=== PATIENT | female | born 1965 | race Caucasian/White ===

== ENCOUNTER 2016-08-07 09:21 | Emergency (ER) | payer OTHER ==
[2016-08-07 09:56] VITALS: BP 180/91
--- NOTE | 2016-08-07 10:12 | UC ---
Dental HPI - HPI Summary HPI Summary: several rotten teeth. Now with infection of left upper incisor which is broken off at gumline. Maxillary sinus on left feels full, she is getting some drainage into mouth, left cheeck swollen. Has Moustapha, can't find a dentist who takes her insurance. Trouble with teeth for many months. - History of Current Complaint Chief Complaint: UCDentalProblem Stated Complaint: DENTAL PAIN Time Seen by Provider: 08/07/16 09:52 Hx Obtained From: Patient Hx Last Menstrual Period: currently ?: No Onset/Duration: Gradual Onset, Lasting Weeks - 1 Severity: Moderate Aggravating: Heat, Cold, Chewing Alleviating: Nothing Related History: Discharge, Swelling - left cheek - Allergies/Home Medications Allergies/Adverse Reactions: Allergies Allergy/AdvReac Type Severity Reaction Status Date / Time Prednisone Allergy Severe BONE PAIN, Verified 05/21/14 16:02 JITTERS, NIGHTMARES Codeine Allergy Mild Vomiting Verified 05/21/14 16:02 IV contrast Allergy Palpitation Uncoded 05/21/14 17:06 s Home Medications: Home Medications ALPRAZolam TAB* [Xanax TAB*] 0.25 mg PO Q6H PRN 08/07/16 [History Confirmed ] Budesonide/Formote 80/4.5(NF) [Symbicort 80/4.5 (NF)] 1 puff INH BID 08/07/16 [ History Confirmed 08/07/16] Lisinopril [Zestril 10 MG-] 10 mg PO DAILY 08/07/16 [History Confirmed 08/07/16] PMH/Surg Hx/FS Hx/Imm Hx Endocrine History Of: Denies: Diabetes, Thyroid Disease Cardiovascular History Of: Reports: Hypertension Denies: Cardiac Disorders Respiratory History Of: Reports: COPD - emphazima, Asthma GI/ History Of: Denies: Ulcer - Surgical History Surgical History: Yes Surgery Procedure, Year, and Place: C SECTION, CHOLECYSTECTOMY - Family History Known Family History: Positive: Respiratory Disease - asthma - Social History Occupation: Employed Full-time Lives: With Family Alcohol Use: None Substance Use Type: None Smoking Status (MU): Heavy Every Day Tobacco Smoker Type: Cigarettes Amount Used/How Often: 1 ppd Length of Time of Smoking/Using Tobacco: 30+ YEARS Have You Smoked in the Last Year: Yes Review of Systems Constitutional: Negative Skin: Negative Eyes: Negative ENT: Dental Pain Respiratory: Negative Cardiovascular: Negative Gastrointestinal: Negative Genitourinary: Negative Motor: Negative Neurovascular: Negative Musculoskeletal: Negative Neurological: Negative Psychological: Negative All Other Systems Reviewed And Are Negative: Yes Physical Exam Triage Information Reviewed: Yes Appearance: Well-Appearing, No Pain Distress, Well-Nourished Vital Signs: Initial Vital Signs Temp 98.0 F 08/07/16 09:50 Pulse 88 08/07/16 09:50 Resp 18 08/07/16 09:50 BP 180/91 08/07/16 09:50 Pulse Ox 100 08/07/16 09:50 Vital Signs Reviewed: Yes Eye Exam: Normal ENT: Positive: Pharynx normal Dental: Positive: Gross Decay/Caries @ - many missing teeth. Left upper incisor rotted off at gumline, surrounding redness and swelling. Tenderness over maxillary area of cheek. Neck exam: Normal Neck: Positive: Supple Respiratory Exam: Normal Cardiovascular Exam: Normal Musculoskeletal Exam: Normal Neurological Exam: Normal Psychological Exam: Normal Skin Exam: Normal Dental Complaint Course/Dx - Differential Dx/Diagnosis Differential Diagnosis/Dx: Dental Abscess, Dental Caries, Fractured Tooth Provider Diagnoses: dental abscess Discharge - Discharge Plan Condition: Stable Disposition: HOME Prescriptions: Penicillin VK TAB 500 MG(NF) [Penicillin VK 500 mg Tab(NF)] 500 mg PO QID #40 tab Patient Education Materials: Dental Abscess (ED) Referrals: Maddy Trujillo MD [Primary Care Provider] -
== END 2016-08-07 10:11 | disposition home or self-care (01) ==
LOC: UCEAST 09:21
DX: K04.7 Periapical abscess without sinus (principal); I10 Essential (primary) hypertension; J44.9 Chronic obstructive pulmonary disease, unspecified; J45.909 Unspecified asthma, uncomplicated; F17.210 Nicotine dependence, cigarettes, uncomplicated; Z79.52 Long term (current) use of systemic steroids; Z91.041 Radiographic dye allergy status
CPT/HCPCS: 99212; G0463

== ENCOUNTER 2019-08-24 08:56 | Observation (INO) | payer OTHER ==
[2019-08-24 09:20] LABS: ABS Basophils 0.1 10^3/ul (0-0.2); ABS Eosinophils 0.1 10^3/ul (0-0.6); ABS Lymphocytes 2.5 10^3/ul (1.0-4.8); ABS Monocytes 0.7 10^3/ul (0-0.8); ABS Neutrophils 5.6 10^3/ul (1.5-7.7); Eosinophil % 1.1 %; Hematocrit 50 % (35-47); Lymphocyte % 27.7 %; Mean Corpuscular HGB Conc 34 g/dL (31-36); Mean Corpuscular Hemoglobin 30 pg (27-31); Mean Corpuscular Volume 88 fL (80-97); Mean Platelet Volume 8.2 fL (7.4-10.4); Nucleated Red Blood Cells % 0.1; Platelet Count 244 10^3/uL (150-450); Red Blood Count 5.64 10^6 /uL (3.70-4.87); Red Cell Distribution Width 14 % (10-15); White Blood Count 8.9 10^3/uL (3.5-10.8)
--- NOTE | 2019-08-24 09:20 | ED ---
Complex/Multi-Sys Presentation - HPI Summary HPI Summary: 54 year old F presenting to [facility] with a chief complaint of intermittent chest pressure that has since resolved, bilateral shoulder pain, and bilateral arm pain since last night. The patient rates the pain 0/10 in severity. Symptoms aggravated by nothing. Symptoms alleviated by nothing. The patient states that she had GERD last night and her pain had resolved, then returned this morning. Patient denies shortness of breath, leg swelling, or dizziness. Patient reports a history of anxiety, hypertension, a Cesarian section, a tubal ligation, and GERD. The patient states that she has not had a stress test. She reports a family history of hypertension but denies any family history of an MA at an early age. She admits to an active history of smoking. She denies any alcohol use or recreational drug use. Medication list reviewed. Allergy list reviewed. Home Medications Medication Instructions Recorded Confirmed Type Albuterol inh POWDER (NF) [Proair 1 puff INH DAILY 09/23/17 08/24/19 History Respiclick] - History Of Current Complaint Chief Complaint: EDChestPainROMI Time Seen by Provider: 08/24/19 09:09 Hx Obtained From: Patient Onset/Duration: Lasting Hours Timing: Intermittent, Lasting: Severity Currently: None Character: Pressure Aggravating Factor(s): None Alleviating Factor(s): None Associated Signs And Symptoms: Positive: Other - Bilateral arm pain; bilateral shoulder pain. Negative: Dizziness, SOB - Allergies/Home Medications Allergies/Adverse Reactions: Allergies Allergy/AdvReac Type Severity Reaction Status Date / Time prednisone AdvReac Severe bone pain, Verified 08/24/19 10:07 jitters codeine AdvReac Mild Vomiting Verified 09/23/17 11:40 IV contrast Allergy Palpitation Uncoded 05/21/14 17:06 s Home Medications: Home Medications Albuterol inh POWDER (NF) [Proair Respiclick] 1 puff INH DAILY 09/23/17 [ History Confirmed 08/24/19] PMH/Surg Hx/FS Hx/Imm Hx Endocrine/Hematology History: Denies: Hx Diabetes, Hx Thyroid Disease Cardiovascular History: Reports: Hx Hypertension Respiratory History: Reports: Hx Asthma, Hx Chronic Obstructive Pulmonary Disease (COPD) - emphazima GI History: Reports: Hx Gastroesophageal Reflux Disease Denies: Hx Ulcer Psychiatric History: Reports: Hx Anxiety - Surgical History Surgery Procedure, Year, and Place: C SECTION, CHOLECYSTECTOMY; tubal ligation Infectious Disease History: No Infectious Disease History: Denies: Hx Hepatitis, Hx Human Immunodeficiency Virus (HIV), Traveled Outside the [place] in Last 30 Days - Family History Known Family History: Positive: Hypertension, Respiratory Disease - asthma - Social History Alcohol Use: None Substance Use Type: Reports: None Smoking Status (MU): Heavy Every Day Tobacco Smoker Type: Cigarettes Amount Used/How Often: 1 ppd Length of Time of Smoking/Using Tobacco: 30+ YEARS Have You Smoked in the Last Year: Yes Review of Systems Positive: Chest Pain Negative: Shortness Of Breath Musculoskeletal: Negative - Leg swelling Positive: Other - Bilateral arm pain; bilateral shoulder pain Neurological/Mental Status: Negative - Dizziness All Other Systems Reviewed And Are Negative: Yes Physical Exam - Summary Physical Exam Summary: VITAL SIGNS: Reviewed. GENERAL: Patient is a well-developed and nourished female who is lying comfortable in the stretcher. Patient is not in any acute respiratory distress. HEAD AND FACE: No signs of trauma. No ecchymosis, hematomas or skull depressions. No sinus tenderness. EYES: PERRLA, EOMI x 2, No injected conjunctiva, no nystagmus. EARS: Hearing grossly intact. Ear canals and tympanic membranes are within normal limits. MOUTH: Oropharynx within normal limits. NECK: Supple, trachea is midline, no adenopathy, no JVD, no carotid bruit, no c- spine tenderness, neck with full ROM. CHEST: Symmetric, no tenderness at palpation. LUNGS: Clear to auscultation bilaterally. No wheezing or crackles. CVS: Regular rate and rhythm, S1 and S2 present, no murmurs or gallops appreciated. ABDOMEN: Soft, non-tender. No signs of distention. No rebound, no guarding, and no masses palpated. Bowel sounds are normal. EXTREMITIES: FROM in all major joints, no edema, no cyanosis or clubbing. NEURO: Alert and oriented x 3. No acute neurological deficits. Speech is normal and follows commands. SKIN: Dry and warm. Triage Information Reviewed: Yes Vital Signs On Initial Exam: Initial Vitals Temp Pulse Resp BP Pulse Ox 97.5 F 93 18 203/103 98 08/24/19 09:02 08/24/19 09:02 08/24/19 09:02 08/24/19 09:02 08/24/19 09:02 Vital Signs Reviewed: Yes Procedures - Sedation Patient Received Moderate/Deep Sedation with Procedure: No Diagnostics - Vital Signs Vital Signs Temp Pulse Resp BP Pulse Ox 08/24/19 09:02 97.5 F 93 18 203/103 98 - Laboratory Result Diagrams: 08/25/19 05:36 08/25/19 05:36 Lab Statement: Any lab studies that have been ordered have been reviewed, and results considered in the medical decision making process. - Radiology Chest x-ray Radiology Interpretation Completed By: Radiologist Summary of Radiographic Findings: NO ACTIVE CARDIOPULMONARY DISEASE. ED physician has reviewed this report. - EKG 09:02 Cardiac Rate: NL - 84 BPM EKG Rhythm: Sinus Rhythm Summary of EKG Findings: Without any accelerations; inverted T-wave in AVL; normal axis. ED physician has reviewed and interpreted this EKG. Re-Evaluation - Re-Evaluation First Eval Re-Evaluation Time: 11:28 Comment: Re-evaluated the patient who appears to need admission. Complex Multi-Symp Course/Dx Assessment/Plan: 54 year old F presenting to [facility] with a chief complaint of intermittent chest pressure that has since resolved, bilateral shoulder pain, and bilateral arm pain since last night. The patient rates the pain 0/10 in severity. Symptoms aggravated by nothing. Symptoms alleviated by nothing. The patient states that she had GERD last night and her pain had resolved, then returned this morning. Patient denies shortness of breath, leg swelling, or dizziness. Patient reports a history of anxiety, hypertension, a section, a tubal ligation, and GERD. The patient states that she has not had a stress test. She reports a family history of hypertension but denies any family history of an MA at an early age. She admits to an active history of smoking. She denies any alcohol use or recreational drug use. Medication list reviewed. Allergy list reviewed. In the ED course the patient was placed on a brancher, IV access was obtained. She was given ASA and Nitroglycerin for CP. She reports she has not taken her Lisinopril today thus she was given Lisinopril 10mg PO. Blood pressure continues to be elevated thus, she was given Labetalol 20 mg IV. Past medical records reviewed. Blood test w/o a significant abnormality except for glucose of 116, troponin 0.04. EKG shows a normal sinus rhythm without any ST elevation. Heart score is 4. I discussed my physical exam and test results with Dr. Miles from the hospitalist services and she agrees to admit the patient to her services. The patient is hemodynamically stable, alert and oriented x 3. - Diagnoses Provider Diagnoses: Hypertensive urgency, Elevated troponin, Angina pectoris - Physician Notifications Discussed Care Of Patient With: Deandra Miles Time Discussed With Above Provider: 11:38 Instructed by Provider To: Other - Discussed the patient with Dr. Miles who will admit the patient. - Critical Care Time Critical Care Time: 30-74 min Discharge ED - Sign-Out/Discharge Documenting (check all that apply): Patient Departure - Discharge Plan Condition: Stable Disposition: ADMITTED TO [facility] - Billing Disposition and Condition Condition: STABLE Disposition: Admitted to [facility] - Attestation Statements Document Initiated by Carmenibe: Yes Documenting Scribe: Kristina Cain Provider For Whom Carmenibe is Documenting (Include Credential): Edwar Caraballo MD Scribe Attestation: I, gabby Adamsed for Ewdar Caraballo MD on 08/25/19 at 1134. Scribe Documentation Reviewed: Yes Provider Attestation: The documentation as recorded by the Kristina morales accurately reflects the service I personally performed and the decisions made by me, Edwar Caraballo MD Status of Scribe Document: Viewed
[2019-08-24 09:41] LABS: Activated Partial Thrombo Time 35.6 seconds (26.0-38.0); INR 0.96 (0.82-1.09)
[2019-08-24 09:42] LABS: Albumin 4.3 g/dL (3.2-5.2); Albumin/Globulin Ratio 1.3 (1-3); Calcium 9.5 mg/dL (8.6-10.3); EGFR African American 90.1 (>60); EGFR Non-African American 74.5 (>60); Globulin 3.4 g/dL (2-4); Potassium 3.7 mmol/L (3.5-5.0); Total Bilirubin 0.8 mg/dL (0.2-1.0); Total Protein 7.7 g/dL (6.4-8.9)
[2019-08-24 09:44] LABS: CKMB ng/mL 1.9 ng/mL (0.6-6.3)
[2019-08-24 09:45] LABS: Troponin I 0.04 ng/mL (<0.03)
[2019-08-24 10:01] LABS: TSH (Thyroid Stimulating Horm) 2.4 mcIU/mL (0.34-5.60)
--- OUTSIDE RECORDS SUMMARY | 2019-08-24 10:02 | XMS REPORT ---
:1965 Author Organization [facility] Care Team Providers Name Role Phone Erin Obregon Primary Care Physician Unavailable Allergies, Adverse Reactions, Alerts Allergy Code CodeSystem Reaction Severity Criticality Status Start Substance Date Moderate Medications Medication Medication Medication Start Stop Route Dose Status Fill Code CodeSystem Date Date Instructions trazodone 752242 RxNorm 2018-11 oral 50 mg 1 active Take 1 tablet -18 tablet at bedtime at for 30 day(s) bedtime sertraline 645072 RxNorm 2018-11 2019- oral 25 mg 1 completed Take 1 tablet -18 - tablet once a day once a for 30 day(s) day sertraline 303750 RxNorm 2019-01 oral 25 mg 1 active Take 1 /2 -01 1/2 tablet once tablet a day for 30 once a day(s) day Problems Problem Name Code CodeSystem Alternate Alternate Start End Status Narrative Code CodeSystem Date Date 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, unspecified Generalized 59620394 SNOMED-CT 20190 Active anxiety 4-03 disorder Generalized 12416405 SNOMED-CT 20190 Active anxiety 4-03 disorder 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, 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 Recurrent [id number] SNOMED-CT 2019-0 Active depressive 6-18 disorder, 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 Post-traumat 81203948 SNOMED-CT 0 Active ic stress 3-22 disorder, unspecified Relevant diagnostic tests/laboratory data Narrative No Information Procedures Procedure Code CodeSystem Target Date of Status Service Device Device Device Name Site Procedure Delivery Code Name UID Location Psychotherap [id number] SNOMED-CT () 2019-05-04 complete Mental y, 45 04 d Health- minutes with [address], [id number] Psychotherap [id number] SNOMED-CT () 2019-06-01 complete Mental y, 45 04 d Health- minutes with [place] patient [address], [id number] [id number] Psychotherap [id number] SNOMED-CT () 2019-01-19 complete Mental y, 45 04 d Health- minutes with [place] patient [address], [id number] [id number] Psychotherap [id number] SNOMED-CT () 2018-12-01 complete Mental y, 45 04 d Health- minutes with [place] patient [address], [id number] [phone] Office or [id number] SNOMED-CT () 2019-01-15 complete Mental other 7 d Health- outpatient [place] visit for [address], established [id number] patient, [id number] which requires at least 2 of these 3 camarena components: An expanded problem focused history; An expanded problem focused examination; Medical decision making of [facility] Office or [id number] SNOMED-CT () 2019-06-01 complete Mental other 6 d Health- outpatient [place] visit for [address], established [id number] patient, [id number] which requires at least 2 of these 3 camarena components: A problem focused history; A problem focused examination; Straightforw sally medical decision making. Counselin Office or [id number] SNOMED-CT () 2018-12-02 complete Mental other 8 d Health- outpatient [place] visit for [address], established [id number] patient, [id number] which requires at least 2 of these 3 camarena components: A detailed history; A detailed examination; Medical decision making of moderate complexity. Counseling and/o SNOMED-CT () 2018-12-14 complete Mental d Health- [place], [id number] [phone] SNOMED-CT () 2018-12-14 complete Mental d Health- [place], [id number] [phone] SNOMED-CT () 2019-02-14 complete Mental d [address], [id number] SNOMED-CT () 2019-02-14 complete Mental d [address], [id number] [id number] SNOMED-CT () 2019-01-06 complete Mental d [address], [id number] [phone] Encounters/Encounter Diagnoses Encounter Encounter Diagnosis Diagnosis Diagnosis Date of Service Name Code Code Name CodeSystem Diagnosis Delivery Location Non-Billable [id number] [id number] Recurrent SNOMED-CT 2019-02-12 Behavioral depressive Health disorder, Clinic , , current , episode severe without psychotic symptoms Vital Signs No Information Social History Element Description Description Start End Code CodeSystem AdditionalInfo Date Date SexAssignedAtBirth Female 1964-06 F AdministrativeGender 08 Hospital Discharge Instructions Reason For Referral Medical Equipment FDA Assessments
[2019-08-24] MEDS ORDERED: Lisinopril TAB* 10 MG PO ONE (10:16)
[2019-08-24] MEDS ORDERED: Labetalol IV* 5 MG/ML 20 ML VIAL IV PUSH ONE (11:22)
[2019-08-24] MEDS ORDERED: Aspirin 81 mg CHEW TAB* 81 MG TAB.CHEW PO ONE (11:23)
[2019-08-24] MEDS ORDERED: Nitroglycerin TAB 0.4 MG* 0.4 MG TAB SL ONE (11:23)
[2019-08-24 12:29] LABS: Troponin I 0.07 ng/mL (<0.03)
[2019-08-24] MEDS ORDERED: Albuterol/Ipratropium NEB.SOL* Albuterol 2.5 MG/Ipratropium 0.5 MG 3 ML INH PRN (13:08)
[2019-08-24] MEDS ORDERED: Acetaminophen TAB* 325 MG PO PRN (13:08)
[2019-08-24 13:31] LABS: Urine Appearance Clear; Urine Bilirubin Negative (Negative); Urine Blood Negative (Negative); Urine Color Yellow; Urine Glucose Negative (Negative); Urine Ketones Negative (Negative); Urine Nitrite Negative (Negative); Urine Protein Negative (Negative); Urine Specific Gravity 1.008 (1.010-1.030); Urine Urobilinogen Negative (Negative)
[2019-08-24] MEDS ORDERED: amLODIPine TAB* 5 MG PO SCH (15:00)
[2019-08-24] MEDS: Enoxaparin(*) 40 MG/0.4 ML SYR SUBCUT SCH (15:39)
[2019-08-24 16:22] LABS: Troponin I 0.07 ng/mL (<0.03)
--- NOTE | 2019-08-24 16:31 | ECHO ---
*[facility]* [place] [address] Fax #: [phone] Transthoracic Echocardiogram Patient: Sydnie Escalante : 1965 Study Date: 08/24/2019 Age: 54 Gender: F HR: 64 bpm Height: 65 in /165.1 cm BSA: 2.02 m^2 Weight: 209.6 lb /95.3 kg BMI: 34.9 kg/m^2 *Real Estate Transaction Manager: * Sara Woodall [facility] *Referring Physician: * Shamika Londono *Reading Physician: * Isauro Harrison MD Indications: Chest Pain, unspecified. History: Chronic obstructive pulmonary disease. Risk factors: Current tobacco use. Hypertension. Conclusions Summary: - Left ventricle: Systolic function is normal. The estimated ejection fraction is 60-65%. Wall motion is normal; there are no regional wall motion abnormalities. - Right ventricle: Systolic function is normal. - Mitral valve: There is trace regurgitation. - Aortic valve: There is no evidence of stenosis. There is no significant regurgitation. - Pulmonary arteries: Systolic pressure can not be accurately estimated. - Study data: No prior study is available for comparison. Study data: Transthoracic echocardiogram. Procedure: Transthoracic echocardiography was performed. Image quality was fair. Complete 2D, spectral Doppler, and color flow Doppler. Location: Bedside. Patient status: Inpatient. Patient room number: 432. No prior study is available for comparison. Rhythm: Normal sinus rhythm. Findings Left ventricle: The cavity size is normal. Wall thickness is mildly increased. Systolic function is normal. The estimated ejection fraction is 60-65%. Wall motion is normal; there are no regional wall motion abnormalities. Doppler parameters are consistent with abnormal left ventricular relaxation (grade 1 diastolic dysfunction). Right ventricle: The cavity size is normal. Wall thickness is mildly increased. Systolic function is normal. Left atrium: The atrium is mildly dilated. Right atrium: The atrium is normal in size. Mitral valve: The leaflets are mildly thickened. There is no evidence of stenosis. There is trace regurgitation. Aortic valve: The valve is trileaflet. Mild focal thickening involving the left coronary cusp. There is no evidence of stenosis. There is no significant regurgitation. Tricuspid valve: The leaflets are normal thickness. There is no evidence of stenosis. There is trace regurgitation. Pulmonic valve: The leaflets are normal thickness. There is no evidence of stenosis. There is trace regurgitation. Aorta: Aortic root: The aortic root is appears normal. Ascending aorta: The ascending aorta is appears normal. Aortic arch: The aortic arch is appears normal. Pericardium: There is no significant pericardial effusion. Pulmonary arteries: The main pulmonary artery is normal-sized. Systolic pressure can not be accurately estimated. Systemic veins: Inferior vena cava: The vessel is dilated. There is (>= 50%) respiratory change in the IVC dimension. Measurements Left ventricle Value Ref Right atrium Value Ref REBECA, LAX 4.4 cm 3.8 - 5.2 SI dim, ES 5.1 cm 3.4 - 5.3 ESD, LAX 3.2 cm 2.2 - 3.5 ML dim, ES, A4C 3.8 cm 2.6 - 4.4 FS, LAX 27 % 45 Estimated RAP 8 mm Hg --------- PW, ED, LAX (H) 1.1 cm 0.6 - 0.9 FS % Aortic valve Value Ref Mid-wall FS 11 % Skylar diam, ED 2.3 cm --------- PW, ED (H) 1.1 cm 0.6 - 0.9 Peak v, S 1.75 m/sec --------- E', lat skylar, TDI (L) 9.4 cm/sec >=10.0 VTI, S 35.9 cm --- ------ E/e', lat skylar, 7 Mean grad, S 6.0 mm Hg ------ --- TDI Peak grad, S 12.0 mm Hg --------- E', med skylar, TDI 7.8 cm/sec >=7.0 LVOT/AV, VTI ratio 0.64 --- ------ E/e', med skylar, 8 ABBEY, VTI 2.01 cm^2 ------ --- TDI ABBEY, Vmax 1.96 cm^2 --------- E', avg, TDI 8.6 cm/sec E/e', avg, TDI 8 <=14 Mitral valve Value Ref Peak E 0.65 m/sec --------- LVOT Value Ref Peak A 0.81 m/sec --------- Diam, S 2.00 cm Decel time 239 ms --------- Area 3.1 cm^2 Peak E/A ratio 0.8 --------- Peak alexa, S 1.09 m/sec VTI, S 23.0 cm Pulmonic valve Value Ref Mean grad, S 3 mm Hg Peak v, S 1.08 m/sec --------- SV 73 ml Peak grad, S 5.0 mm Hg --------- SV/bsa 36 ml/m^2 Aortic root Value Ref Ventricular septum Value Ref Root diam 2.9 cm <4.2 IVS, ED (H) 1.2 cm 0.6 - 0.9 Ascending aorta Value Ref Right ventricle Value Ref AAo AP diam, S 3.0 cm --------- AW thickness, ED (H) 0.7 cm 0.1 - 0.5 REBECA, LAX 2.9 cm Aortic arch Value Ref REBECA minor ax, A4C 3.1 cm 1.9 - 3.5 Arch diam 2.2 cm --------- mid Decending aorta Value Ref Left atrium Value Ref Shan peak alexa 0.84 m/sec --------- AP dim, ES 3.80 cm 2.70 - 3.80 Inferior vena cava Value Ref ML dim, A4C 3.6 cm Diam 2.2 cm --------- SI dim, A4C 5.5 cm Vol/bsa, ES, 1-p 22 ml/m^2 11 - 40 A4C Vol/bsa, ES, A/L 25 ml/m^2 16 - 34 Legend: (L) and (H) jeremias values outside specified reference range. Prepared and electronically signed by Isauro Harrison MD 08/24/2019 16:30
--- NOTE | 2019-08-24 16:45 | HP ---
ADMISSION HISTORY AND PHYSICAL: DATE OF ADMISSION: 08/24/19 PRIMARY CARE PHYSICIAN: The patient has no PCP. ADMITTING PHYSICIAN: Dr. Miles * (dictated by Geovanna Lei NP). CHIEF COMPLAINT: Right chest pain. HISTORY OF PRESENT ILLNESS: Ms. Escalante is a 54-year-old female with past medical history significant for COPD, emphysema, asthma, depression, anxiety, panic disorder, hypertension, GERD, and MARIO. She presented to the emergency department today after having 2 episodes of chest pain. She is also a current smoker. Ms. 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 States that it felt like a muscular type pain and felt like the pain to her right chest was somewhat superficial, but also states that it felt like it was "in my lungs." States that this pain was constant and lasted for only a couple minutes. States that it was fairly severe , but does not give it a number rating. She went home and gave herself a nebulizer treatment because she thought it may have had something to do with her underlying pulmonary disease. She also is wondering if it was in relation to GERD, although it did not feel like her usual heartburn. She did not have any more episodes of chest pain last night. She did, however, have another episode shortly after letting her dog out this morning. States that it was less severe; however, she let the dog out, sat down to have a cigarette and a cup of coffee, and then started feeling the chest pain. She states that this time it actually started in her arms and shoulders and then moved to the right side of her chest. Again, it lasted for a couple minutes and then went away. States it felt somewhat tight, but did not feel like anything was "sitting on my chest." She denies any shortness of breath with either of these episodes of chest pain. She has not seen a primary care doctor in at least the last couple years she says and subsequently has not been taking medications for her various chronic comorbidities. She states that she has some leftover albuterol medications, which she takes every once in a while when she feels like she needs them, but that is it. She does state that she follows with [facility]. The last time she saw them was about a month ago and she said she usually goes every 2 weeks in relation to her depression, anxiety, panic disorder, and PTSD. States that again at least a couple years ago she was taking Zoloft and trazodone; however, she has not been taking these. She does have a history of anemia, which sounds as if it was in relation to heavy menses. States that her last period was a couple years ago and is assuming that she has gone through menopause, but has not confirmed this with a provider. States she is under a lot more stress than usual, is having lots of stress with her living situation as well as her financial situation. She complains of a gradual decrease in her visual acuity, but nothing acute. Denies any shortness of breath or current chest pain. States she has just been feeling very stress and tired recently. She did start taking some vitamins, 2 [employer] starting in February and said that that actually helped her , but she stopped when she ran out and has not gotten any since. She does feel bloated, says she was very gassy last night. Denies any nausea or vomiting. Did have 1 episode of diarrhea this morning, states that it was normal in color. Has never had a colonoscopy. Has not been drinking much fluid and that her urine is somewhat dark. Denies any swelling. She does have a history of right arm cellulitis and believes that she is getting over an episode of that, which started a couple weeks ago. The patient denies any history of bleeding or clotting disorders other than known heavy menses. Denies any recent procedures or hospitalizations or any recent antibiotic use. While in the emergency department, the patient did receive 324 mg of aspirin. She came in with a blood pressure of 203/103, which remained rather high. She also received labetalol 20 mg IV and lisinopril 10 mg p.o. She did not receive any nitroglycerin as she has not had chest pain since arrival. Hospital Medicine was asked to evaluate the patient for admission. PAST MEDICAL HISTORY: COPD, emphysema, asthma, depression, anxiety, hypertension, GERD, cellulitis of the right arm, PTSD, panic disorder, anemia, excessive menstruation, MARIO, and lumbar radiculopathy. PAST SURGICAL HISTORY: 1. Laparoscopic cholecystectomy. 2. Tubal ligation. 3. x1. HOME MEDICATIONS: 1. Albuterol inhaler. 2. Albuterol nebulizer. These are not currently prescribed. They are leftover medications and she takes them as needed. ALLERGIES: ALLERGIES: 1. PREDNISONE. 2. CODEINE. FAMILY HISTORY: Twin brother with hypertension. Mother with colon cancer. Brother with lung cancer. Brother with brain cancer. Maternal grandmother with stroke. Sister with possible CO. Denies any other known history of CO or cardiac disease. SOCIAL HISTORY: The patient states that a surrogate decision maker for her would be her sister, Joy Luna. She is single. Lives with a roommate. She is a current smoker. She currently smokes up to 2 packs per day. States that she has been smoking since age 11 or 12 and that the amount has varied. Denies any alcohol or illicit drug use. REVIEW OF SYSTEMS: A 12-point review of systems was completed with this patient. Please see HPI for all pertinent positives and negatives. PHYSICAL EXAMINATION CONSTITUTIONAL: The patient is sitting up in bed, in no acute distress. VITAL SIGNS: Temp 97.5, heart rate 79, respiratory rate 15, O2 saturation 97% on room air, blood pressure 162/98. RESPIRATORY: Lung sounds clear throughout. Good airflow. Normal respiratory effort. CARDIOVASCULAR: Heart rate regular. S1, S2 present. No murmurs, rubs, or gallops noted. No JVD. GI: Bowel sounds throughout. Abdomen is large, soft, nontender. EXTREMITIES: No edema. Pedal pulses 2+ bilaterally. MUSCULOSKELETAL: Strength and range of motion 5/5 to all extremities. NEURO: Alert and oriented x3. Cranial nerves II through XII grossly intact. PSYCH: Responds appropriately. Normal affect. SKIN: Appears dry and intact. DIAGNOSTIC STUDIES/LAB DATA: Troponin 0.04 at 9:05 and 0.07 at 11:57. EKG at 9:02 shows sinus rhythm with inverted Ts in aVL and minor ST depression in leads I to V4, V5 and V6 with peaked T-waves. EKG at 1335 shows sinus rhythm with T-wave inversion in aVL with mild ST depression in leads I, V3, V4, V5 with peaked T-waves. Chest x-ray, impression: States no active cardiopulmonary disease. Labs: WBC 8.9, RBC 5.67, hemoglobin 17.0, hematocrit 50, MCV 88, MCH 30, MCHC 34, RDW 14, platelet count 244. INR 0.96, APTT 35.6. Sodium 138, potassium 3.7 , chloride 105, carbon dioxide 25, anion gap 8, BUN 12, creatinine 0.8, estimated GFR 74.4, BUN/creatinine ratio 15.0, glucose 116, calcium 9.5. Total bilirubin 0.80, AST 17, ALT 15, alk phosphatase 99. CK-MB 1.9, BNP 29. Total protein 7.7, albumin 4.3, globulin 3.4, albumin/globulin ratio 1.3. TSH 2.40. ASSESSMENT AND PLAN: Ms. Escalante is a 54-year-old female with past medical history significant for chronic obstructive pulmonary disease, emphysema, asthma , depression, anxiety, posttraumatic stress disorder, panic disorder, hypertension, anemia, gastroesophageal reflux disease, and obstructive sleep apnea, who presented to the emergency department today after having 2 episodes of chest pain since last night. 1. Chest pain. Somewhat atypical in nature. Has denied any episodes chest pain since being in the hospital. She also has denied any shortness of breath with this chest pain. Unsure if these were brought on by exertion, but it does sound somewhat likely from her story. She has a HEART score of 6, giving her a moderate score and risk of major adverse cardiac event of 12% to 16.6%. She did have elevated troponins of 0.04 and second troponin 0.07, third troponin 0.07. EKGs show no clinically significant concern for ischemia at this time. EKG has been reviewed by Dr. Harrison, who also suggested stress testing in the morning and continuing to trend troponins. Causes of chest pain could be in relation to musculoskeletal pain versus gastroesophageal reflux disease versus pulmonary pathology versus acute coronary syndrome. The concern for acute coronary syndrome at this time is low; however, we will continue to trend troponin levels. Transthoracic echocardiogram ordered. Nuclear stress ordered. Trend troponins and EKGs with increasing levels. Telemetry monitoring. After a.m. lipid profile an accurate ACSVD risk can be calculated. 2. Hypertension. BPs, initial BP of 203/103, have remained high. She did receive labetalol 20 IV and lisinopril 10 p.o. while in the emergency department. She has not been on medications for the last couple of years per her report to treat her high blood pressure. Continue lisinopril 10 mg p.o. daily. Initiate amlodipine 5 mg p.o. daily tonight. Continue to monitor. 3. Chronic obstructive pulmonary disease and emphysema. Does not appear to be in exacerbation at this time. Again, she has not been taking medications to treat this condition other than rescue albuterol medications. She does complain of feeling short of breath at times after exertion, but not always and states that she has been wheezing more often lately. We will initiate DuoNeb q.4 hours while awake. Will continue to monitor. Should f/u as an outpatient, would be beneficial to see gericare aide if she is agreeable. 4. Asthma. Does not appear to be in exacerbation at this time. See above. 5. Gastroesophageal reflux disease. Does not appear to be having any typical heartburn symptoms at this time. We will continue to monitor. 6. Depression and anxiety. She follows up outpatient with [facility]. She does appear to be mildly anxious at this time; however, we will continue to monitor her response to her current condition and she should follow up outpatient about these conditions with a PCP and continue to see providers at [facility]. 7. Obstructive sleep apnea. Per old records, the patient has been diagnosed with obstructive sleep apnea. She has never worn a CPAP per her report. We will continue to monitor her throughout the night. Would be beneficial to f/u with gericare aide or be referred for sleep study as outpt. 8. Polycythemia. RBC is 5.64, H and H 17 and 50. This may be in relation to hypoxia related to her multiple lung diseases, may be in relation to untreated sleep apnea. She also has been anemic in the past and likely has gone through menopause per her lack of menses for the last couple years and age, although this has not been confirmed medically. It would not explain the polycythemia but it could explain the transition from anemia to polycythemia over the last couple of years. We will draw labs in the a.m. 9. Elevated troponins. This may be in relation to demand ischemia r/t respiratory disease vs uncontrolled HTN vs an acute coronary syndrome. Continue to trend troponins. 10. Code status: Full code. 11. DVT prophylaxis: Lovenox subcu. TIME SPENT: Approximately 75 minutes was spent on this admission with almost half of that being [id number] with the patient for interview, exam, and reviewing plan of care. This case has been reviewed by my attending physician, Dr. Miles, and she agrees with this plan. GEOVANNA LEI NP [id number]/CPS #: [id number] EVON
[2019-08-24 19:11] LABS: Troponin I 0.05 ng/mL (<0.03)
[2019-08-24] MEDS ORDERED: Simethicone TAB* 80 MG TAB.CHEW PO PRN (22:10)
[2019-08-25] MEDS ORDERED: hydrALAZINE IV* 20 MG/ML VIAL IV SLOW PU ONE (05:30)
[2019-08-25 06:20] LABS: Hematocrit 46 % (35-47); Hemoglobin 15.8 g/dL (12.0-16.0); Mean Corpuscular HGB Conc 34 g/dL (31-36); Mean Corpuscular Hemoglobin 30 pg (27-31); Mean Corpuscular Volume 88 fL (80-97); Mean Platelet Volume 8.3 fL (7.4-10.4); Platelet Count 248 10^3/uL (150-450); Red Blood Count 5.28 10^6 /uL (3.70-4.87); Red Cell Distribution Width 14 % (10-15)
[2019-08-25 06:43] LABS: BUN/Creatinine Ratio 18.7 (8-20); Calcium 9.4 mg/dL (8.6-10.3); EGFR African American 97.1 (>60); EGFR Non-African American 80.2 (>60); HDL Cholesterol 33.4 mg/dL; Magnesium 2.1 mg/dL (1.9-2.7)
[2019-08-25] MEDS ORDERED: Influenza VAC *QUAD* 2019-20* 0.5 ML SYRINGE IM ONE (09:00)
[2019-08-25] MEDS ORDERED: Lisinopril TAB* 5 MG PO SCH (09:00)
[2019-08-25] MEDS ORDERED: Aspirin 81 mg CHEW TAB* 81 MG TAB.CHEW PO SCH (09:00)
[2019-08-25 10:49] VITALS: BP 152/88
--- NOTE | 2019-08-25 11:57 | PN ---
Subjective Date of Service: 08/25/19 Objective Active Medications: Acetaminophen (Tylenol Tab*) 650 mg PO Q4H PRN PRN Reason: PAIN - MILD Albuterol/Ipratropium (Duoneb (Albuterol 2.5 Mg/Ipratropium 0.5 Mg)) 1 neb INH [id number] AWAKE PRN PRN Reason: sob/wheexing Amlodipine Besylate (Norvasc Tab*) 5 mg PO BEDTIME [facility] Last Admin: 08/24/19 15:39 Dose: 5 mg Aspirin (Aspirin 81 Mg Chew Tab*) 81 mg PO DAILY [facility] Last Admin: 08/25/19 08:45 Dose: 81 mg Enoxaparin Sodium (Lovenox(*)) 40 mg SUBCUT Q24H [facility] Last Admin: 08/24/19 15:39 Dose: 40 mg Lisinopril (Prinivil Tab*) 10 mg PO DAILY [facility] Last Admin: 08/25/19 08:45 Dose: 10 mg Simethicone (Mylicon Tab*) 80 mg PO Q6H PRN PRN Reason: DYSPEPSIA Last Admin: 08/24/19 22:23 Dose: 80 mg Vital Signs - 8 hr 08/25/19 08/25/19 08/25/19 04:56 05:47 07:30 Temperature 97.5 F Pulse Rate 66 72 Respiratory 16 Rate Blood Pressure 190/100 131/74 152/88 (mmHg) O2 Sat by Pulse 98 Oximetry 08/25/19 08:00 Temperature Pulse Rate Respiratory 20 Rate Blood Pressure (mmHg) O2 Sat by Pulse Oximetry Oxygen Devices in Use Now: None Result Diagrams: 08/25/19 05:36 08/25/19 05:36 Assess/Plan/Problems-Billing Assessment: - Patient Problems (1) Chest pain Status: Acute Code(s): R07.9 - CHEST PAIN, UNSPECIFIED SNOMED Code(s): 60851835 Comment: High Risk nuclear cardiac exercise stress test per original report - consulted
[2019-08-25] MEDS: Enoxaparin(*) 40 MG/0.4 ML SYR SUBCUT SCH (13:47)
--- NOTE | 2019-08-25 21:39 | CONS ---
CARDIOLOGY CONSULTATION REPORT: DATE OF CONSULT: 08/25/19 INDICATION FOR CONSULT: Chest pain, abnormal troponin. HISTORY OF PRESENT ILLNESS: The patient is a 54-year-old female with a history of smoking, history of hypertension, obesity, who came to the emergency room yesterday with chest pain. 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 She did not get any diaphoresis. She did not get any shortness of breath. She was just aware of the discomfort. She said she went home, had some coffee, smoked a couple of cigarettes, and her symptoms went away. She went to drive back to work and started noticing the same symptoms and decided to go to the emergency room. On arrival in the emergency room, she was not having discomfort at all. Her initial EKG was normal. The patient was admitted to the hospital because of her initial troponin level was 0.04. The patient did not have any further discomfort. The patient's peak troponin level was 0.07. Again, she had no further EKG changes. This morning, the patient underwent an exercise nuclear stress test. She exercised for 6 minutes. She had some shortness of breath, but no chest pain. She had no EKG changes. She did have elevated blood pressure at peak exercise with a systolic blood pressure of 220. I personally reviewed the nuclear images. My interpretation of the nuclear images was a moderate size area of mild ischemia to the anterior wall. There were no wall motion abnormalities. Ejection fraction was greater than 55%. Her TID was normal. PAST MEDICAL HISTORY: Significant for hypertension, smoking, obesity, panic disorder, PTSD, gastroesophageal reflux disease, depression. PAST SURGICAL HISTORY: Laparoscopic cholecystectomy, tubal ligation, x1. HOME MEDICATIONS: 1. Albuterol inhaler. 2. She had previously been on lisinopril for blood pressure control, but she ran out of those medications. ALLERGIES: PREDNISONE and CODEINE. FAMILY HISTORY: Her mother had colon cancer. Her maternal grandmother had a stroke. She denies any early coronary artery disease. SOCIAL HISTORY: She lives alone. She is a current smoker, 2 packs a day. Denies any use. She denies any regular exercise. REVIEW OF SYSTEMS: Negative for fever or chills. Negative for changes in bowel or bladder habits. Negative for changes in weight. Other 12-point review is unremarkable. PHYSICAL EXAM: Height is 5 feet 4 inches, weight 208 pounds. Temperature 97.5 , heart rate is 72, blood pressure 152/88, respiratory rate is 16, oxygen saturation 98% on room air. Sclerae anicteric. Oropharynx is pink without erythema. Carotids are 2+ without bruits. JVD is normal. Thyroid is normal. Cardiac Exam: S1, S2 without any murmurs, rubs, or gallops. Lungs have distant breath sounds. There are no rhonchi or rales. Abdomen is obese, soft, nontender , nondistended with normoactive bowel sounds. Extremities: Show no edema. She has 2+ pulses throughout. The patient is awake, alert and oriented. She moves all 4 extremities equally. DIAGNOSTIC STUDIES/LAB DATA: Again, her EKG was normal. Her chest x-ray showed signs of hyperinflation, but no active disease. Total cholesterol 201, LDL cholesterol 140. TSH was normal. IMPRESSION AND PLAN: This is a 54-year-old female who comes to the hospital with atypical chest pain. The patient did have an elevated troponin level, but no EKG changes. The patient was significantly hypertensive on her arrival to the hospital. Her initial blood pressure was 203/103. The patient did have a stress, which I think is between low and intermediate risk; based on the perfusion images, she has normal LV function. Her echocardiogram was normal. At this point, I think the patient can continue on maximal medical therapy. I did talk to the patient at length regarding reducing her risk for coronary artery disease including stopping smoking, weight reduction, regular exercise, low- cholesterol diet, and cholesterol medications for her LDL greater than 140. I will see the patient in followup in six weeks and make further recommendations at that time. [id number]/[facility] #: [id number] MTDD
--- NOTE | 2019-08-26 10:02 | DS ---
AMENDED REPORT NOW INCLUDES DESIGNATED COSIGNER DISCHARGE SUMMARY: DATE OF ADMISSION: 08/24/19 DATE OF DISCHARGE: 08/25/19 ATTENDING PHYSICIAN: Dr. Miles * (dictated by Geovanna Lei NP). PRIMARY CARE PHYSICIAN: Being set up with [facility]. CONSULTING PHYSICIAN: Dr. Harrison with Cardiology. PRIMARY DIAGNOSES: 1. Chest pain. 2. Hypertension. 3. Elevated troponins. SECONDARY DIAGNOSES: 1. Chronic obstructive pulmonary disease with emphysema. 2. Asthma. 3. Anxiety. 4. Depression. 5. Obstructive sleep apnea. 6. Heavy tobacco user. HISTORY OF PRESENT ILLNESS AND HOSPITAL COURSE: Ms. Escalante is a 54-year-old female with past medical history significant for COPD with emphysema, asthma, hypertension, anxiety, depression, and MARIO. She reported to the emergency department on 08/24/19 after a second episode of chest pain. She stated the first episode was on the night of 08/23/19 when after she left work and got into her car she felt pain throughout her bilateral shoulders and upper arms and it went to the right side of her chest. She did not feel short of breath with this pain. She continued to drive, stated that the pain lasted for a couple of minutes and then went away. She had another episode of chest pain on the morning of 08/24/19 similar to the first, but less severe. She stated this happened after letting her dogs out and she went to sit down on her table and had a cup of coffee and a cigarette, and the chest pain came on again. She was noted to have elevated troponin levels that peaked at 0.07 and then came back down. While in the emergency department, she did have an EKG that showed sinus rhythm with very minor ST depressions, for which they were not clinically significant per internet marketing director. She also had a transthoracic echocardiogram that showed left ventricle with normal systolic function and an EF of 60% to 65% with no regional wall motion abnormalities. She did have an episode in the middle of the night and very early on 08/25/19, for which she started getting pain in bilateral upper arms again, did not have any chest pain, did not have any shortness of breath and states that she got very anxious when this happened and did have a significant increase in blood pressure up to 208/108. She was given a dose of hydralazine and her blood pressure decreased shortly after to 131/74. Denies any other recent episodes of chest pain or shortness of breath. Denies any acute visual changes. Denies abdominal discomfort, diarrhea, difficulty with urination, blood in urine or stool, unusual numbness or tingling. She does admit to not seeing a primary care physician for at least the last couple of years. She subsequently has not been taking medications to treat her chronic conditions. She has been started on lisinopril, amlodipine, and aspirin. It appears that she did have a positive response to these medications despite her BP spike very early this morning. She is being set up with [facility] to find a new PCP. At one point, she did have a positive nuclear stress test. This was reviewed by Dr. Harrison with Cardiology and he believed the stress test to not be at high risk. ASCVD score was calculated for her at 14.4% risk of cardiovascular event in the next 10 years and was recommended to start her on a moderate to high intensity statin, the patient agreed that she would do this. Also stated that she is motivated to follow up with her new PCP. STUDIES: EKG showed sinus rhythm with very minimal ST depressions, which were of no clinical significance per Cardiology. Chest x-ray: Impression states no active cardiopulmonary disease. That was completed at 9:20 a.m. on 08/24/19. A second chest x-ray that was completed at 1405 on 08/24/19, impression stated hyperinflation consistent with COPD. No active cardiopulmonary disease. Transthoracic echocardiogram: Conclusion summary states left ventricle systolic function is normal. The estimated EF is 60% to 65%. Wall motion is normal. There are no regional wall motion abnormalities. Right ventricle systolic function is normal. Mitral valve, there is trace regurgitation. Aortic valve, there is no evidence of stenosis. There is no significant regurgitation. Pulmonary artery systolic pressure cannot be accurately estimated. No prior study available for comparison. It does also note that there is grade 1 diastolic dysfunction of left ventricle. Nuclear exercise stress test states under an addendum entered by Dr. Marques. Findings were reviewed with Dr. Harrison after discussion and accounting for the size of the perfusion defect in the attenuation corrected images, this study is assessed as "intermediate risk" based on ACC/AHA guidelines. It had previously been categorized as high risk. LABORATORY VALUES: Serial troponins starting on 08/24/19 at 0905: 0.04, 0.07, 0.07, and 0.05 ending at 1821. Labs from 08/24/19 showed WBC 8.9, RBC 5.64, hemoglobin 17, hematocrit 50, MCV 88, MCH 30, RDW 14, platelet count 244. Sodium 138, potassium 3.7, chloride 105, carbon dioxide 25, BUN 12, creatinine 0.80, estimated GFR is 74.5, BUN/creatinine ratio 15, glucose 116. Hemoglobin A1c 5.5. Calcium 9.5. Total bilirubin 0.8, AST 17, ALT 15, alk phosphatase 99. CK-MB 1.9. BNP 29. TSH 2.4. Significant labs from 08/25/19, RBC is 5.28, hemoglobin 15.8, hematocrit 46, magnesium 2.1, potassium 4, triglycerides 140, cholesterol 201, LDL cholesterol 140, HDL cholesterol 33.4. REVIEW OF SYSTEMS: A 10-point review of systems was completed with this patient. Please see HPI for all pertinent positives and negatives. PHYSICAL EXAMINATION: Constitutional: The patient is sitting up in bed, in no acute distress, appears mildly anxious. Last vital signs: Temp 97.5, heart rate 72, respiratory rate 16, O2 saturation 98% on room air, BP 152/88. HEENT: PERRL. No scleral icterus noted. Mucous membranes moist. Cardiovascular: Heart rate regular. S1, S2 present. No murmurs, rubs, or gallops noted. Extremities: No edema. Respiratory: Lung sounds clear throughout bilaterally. Normal respiratory effort. GI: Normoactive bowel sounds present throughout. Abdomen is soft and nontender to palpation. Musculoskeletal: Range of motion and strength within normal limits. Skin: A couple of small soft movable masses are noted to bilateral arms. No erythema or warmth. Skin is intact. Larger soft bulge to right side of upper back. Skin otherwise appears dry and intact. Neuro: Alert and oriented x3. DISCHARGE PLAN: 1. Diet: Heart-healthy diet. 2. No equipment necessary for discharge. 3. Activity: Continue with usual activity level as tolerated. Should increase to tolerable level of regular exercise. 4. Chest pain, hypertension, and elevated troponins. No clinical suspicion for ACS. Did have consult with Dr. Harrison from Cardiology. She will follow up with him within 6 weeks to address any concerns and see how she is doing. Her lisinopril dosage has been increased to 20 mg daily. We will continue with amlodipine 5 mg at bedtime. Elevated troponins are very likely in relation to her significant hypertension. ASCVD risk score of 14.4% of cardiovascular event in the next 10 years. Spoke about plan to initiate moderate intensity statin and what this means for her. The patient agreed. It was also recommended by Dr. Harrison that she start aspirin daily. A prescription for this has also been sent in. She will begin atorvastatin 20 mg daily. She should also follow up with a new PCP within the next week or so. 5. COPD with emphysema and asthma. Other than using leftover albuterol that she has at home, she is not currently being treated for COPD or asthma. She states that she hardly ever has to use her leftover albuterol. With the finding , it is reasonable to send her with an Rx for albuterol MDI inhaler and again she will need to follow up with primary care. 6. MARIO. Again, she has not been treated for this and should follow up with primary care. 7. Anxiety and depression. The patient should continue to follow up with [facility] as she has been. Spoke about starting her on Zoloft as she believes she had the most benefit from this medication in the past. She is aware that she is only getting a 30-day supply and will need to follow up with primary care to continue this medication if so desired. She is also aware that in order to have proper effect, she will have to take it regularly. 8. Heavy tobacco user. Talked about smoking cessation. Additional information packets on smoking cessation as well as cigarette smoking and health were given to the patient. She was seen by smoking cessation counselor while in the hospital. Nicotine lozenges have been prescribed for her at discharge. Again, she should be following up with her primary care provider. 9. Return precautions. Call 911 for any further chest pain or unusual shortness of breath or any other concerns that seem to need immediate attention. All other non-immediate concerns should be deferred to new PCP. MEDICATIONS AT DISCHARGE: 1. Albuterol inhaler 1 to 2 puffs q.4 hours p.r.n. 2. Amlodipine 5 mg p.o. at bedtime. 3. Aspirin 81 mg p.o. daily. 4. Atorvastatin 20 mg p.o. daily. 5. Lisinopril 20 mg p.o. daily. 6. Nicotine lozenge 4 mg buccal q.2 hours p.r.n. 7. Sertraline 25 mg p.o. daily. CONDITION AT DISCHARGE: Stable. DISPOSITION: Home. TIME SPENT: Approximately 60 minutes was spent on this discharge, with about half of that being [id number] with the patient for interview, exam, and reviewing plan of care and discharge plan. This case has been reviewed by my attending physician, Dr. Miles, and she agrees with this plan. GEOVANNA LEI NP [id number]/CPS #: [id number] EVON
== END 2019-08-25 16:40 | disposition home or self-care (01) | DRG 203 ==
LOC: ED 08:56 → INTOOBSV 13:08 → MEDTELE 13:08
PROVIDERS: ADMIT Internal Medicine; ATTEND Internal Medicine
DX: R07.89 Other chest pain (principal); I10 Essential (primary) hypertension; R74.8 Abnormal levels of other serum enzymes; J43.9 Emphysema, unspecified; D75.1 Secondary polycythemia; F41.8 Other specified anxiety disorders; G47.33 Obstructive sleep apnea (adult) (pediatric); F41.0 Panic disorder [episodic paroxysmal anxiety]; K21.9 Gastro-esophageal reflux disease without esophagitis; F17.210 Nicotine dependence, cigarettes, uncomplicated; F43.10 Post-traumatic stress disorder, unspecified; Z79.51 Long term (current) use of inhaled steroids; Z88.5 Allergy status to narcotic agent; Z88.8 Allergy status to other drugs, medicaments and biological substances; Z82.49 Family history of ischemic heart disease and other diseases of the circulatory system; Z80.0 Family history of malignant neoplasm of digestive organs; Z80.1 Family history of malignant neoplasm of trachea, bronchus and lung; Z80.8 Family history of malignant neoplasm of other organs or systems; Z82.3 Family history of stroke; E66.9 Obesity, unspecified; Z68.35 Body mass index [BMI] 35.0-35.9, adult
CPT/HCPCS: 36415; 71045; 71046; 78452; 80048; 80053; 80061; 81003; 82553; 83036; 83735; 83880; 84443; 84484; 85025; 85027; 85610; 85730; 90686; 93005; 93017; 93306; 96374; 99284; A9270-GY; A9502; J0360; J1650